=== PATIENT | male | born 1970 | race Asian ===

== ENCOUNTER 2020-09-21 11:08 | Emergency (ER) | payer SELFPAY ==
[~2020-09-21] VITALS: Ht 177.8 cm; Wt 100.0 kg
[~2020-09-21 11:08] MED LIST: ETOMIDATE 2MG/ML 10ML VIAL IV ONE; SODIUM CHLORIDE 0.9% 10ML VIAL ONE
[2020-09-21] MEDS ORDERED: FENTANYL CITRATE/PF 1,000 MCG in SODIUM CHLORIDE 0.9% 80 ML IV PRN ×3 (11:45→12:30)
[2020-09-21 11:54] LABS: BASOPHILS % 0.6 % (0.0-2.0); EOSINOPHILS % 0.6 % (0.0-5.0); HEMATOCRIT. 52.7 % (42.0-52.0); HEMOGLOBIN. 16.8 g/dL (14.0-18.0); LYMPHOCYTES % 19.9 % (20.0-50.0); MEAN CORPUSCULAR HEMOGLOBIN 27.3 pg (28.0-32.0); MEAN CORPUSCULAR VOLUME 85.6 fL (80.0-94.0); MONOCYTES % 3.9 % (2.0-8.0); RED BLOOD CELL COUNT 6.16 mill/uL (4.7-6.1); RED CELL DISTRIBUTION WIDTH 13.4 % (11.6-14.6)
[2020-09-21 11:56] LABS: CLARITY URINE CLEAR (CLEAR); COLOR URINE DARK YELLOW (YELLOW); KETONES URINE 3+ (NEGATIVE); LEUKOCYTE ESTERASE URINE NEGATIVE (NEGATIVE); NITRITE URINE NEGATIVE (NEGATIVE); OCCULT BLOOD URINE 1+ (NEGATIVE); PH URINE 5.5 (4.5-8.0); PROTEIN URINE 3+ (NEGATIVE); SPECIFIC GRAVITY URINE 1.037 (1.005-1.030)
[2020-09-21] MEDS: DEXAMETHASONE 4MG/ML 1ML VIAL IV ONE (12:01)
[2020-09-21] MEDS: ACETAMINOPHEN 650MG SUPP PR STA (12:01)
[2020-09-21] MEDS: SODIUM CHLORIDE 0.9% 1000ML BAG (SEPSIS BOLUS) IV ONE (12:02)
[2020-09-21] MEDS: PROPOFOL 10MG/ML 100ML 100 ML IV ONE (12:02)
[2020-09-21] MEDS: VECURONIUM BROMIDE 10 MG/VIAL IV ONE (12:02)
[2020-09-21 12:03] LABS: CHLORIDE 95 mEq/L (98-107)
[2020-09-21] MEDS: CEFTRIAXONE 1 G PREMIX 50 ML IV ONE (12:03)
[2020-09-21 12:11] LABS: FIBRINOGEN 470 mg/dL (200-400); INR 1.3
[2020-09-21 12:12] LABS: CREATINE KINASE 125 IU/L (39-308)
[2020-09-21] MEDS ORDERED: PROPOFOL 10MG/ML 100ML 100 ML IV PRN (12:15)
[2020-09-21 12:37] LABS: D-DIMER > 35.20 mg/L FEU (<0.50)
[2020-09-21] MEDS: AZITHROMYCIN 500 MG in DEXT 5% WATER 250 ML IV ONE (12:38)
[2020-09-21 12:45] LABS: BG CARBOXYHEMOGLOBIN 0.6 % (0.5-1.5); BG FRACTION INSPIRED OXYGEN 100; BG HCO3 ACT 17.4 mmol/L (22.0-26.0); BG METHEMOGLOBIN 0.5 % (0.0-1.5); BG OXYGEN SATURATION 85.8 % (92.0-98.5); BG OXYHEMOGLOBIN 84.9 % (94.0-97.0); BG PCO2 56.9 mmHg (35.0-45.0); BG PH 7.103 (7.350-7.450); BG SAMPLE SITE RIGHT RADIAL; BG VENT MODE VENT - AC/VC
[2020-09-21] MEDS: SODIUM CHLORIDE 0.9% 1,000 ML IV ONE (12:45)
[2020-09-21 12:49] VITALS: BP 136/93
[2020-09-21] MEDS ORDERED: EPINEPHRINE 5 MG in SODIUM CHLORIDE 0.9% 245 ML IV PRN (13:45)
[2020-09-21] MEDS ORDERED: LIDOCAINE HCL 2% 5ML SYRINGE IV ONE (13:45)
[2020-09-21] MEDS ORDERED: ALTEPLASE 100MG/VIAL IV ONE (13:45)
[2020-09-21] MEDS ORDERED: CALCIUM CHLORIDE 1GM/10ML SYR IV ONE (13:45)
[2020-09-21] MEDS ORDERED: EPINEPHRINE 5 MG in SODIUM CHLORIDE 0.9% 250 ML IV PRN (13:45)
[2020-09-21] MEDS ORDERED: EPINEPHRINE 0.1MG/ML (1:10,000) 10ML SYR ONE (13:45)
[2020-09-21] MEDS ORDERED: AMIODARONE HCL 50MG/ML 3ML VIAL IV ONE (13:45)
[2020-09-21] MEDS ORDERED: SODIUM BICARBONATE 8.4% 1 MEQ/ML 50ML SYR IV ONE ×2 (13:45→14:00)
[2020-09-21] MEDS ORDERED: MAGNESIUM SULFATE 4G IN WATER 100ML PREMIX IV ONE (13:45)
[2020-09-21 14:42] LABS: PLATELET ESTIMATE NORMAL
== END 2020-09-21 14:12 | disposition expired ==
LOC: ER 11:08 → CANBEDREQ 15:21
DX: A41.89 Other specified sepsis (principal); U07.1 COVID-19; R65.21 Severe sepsis with septic shock; J96.01 Acute respiratory failure with hypoxia; J12.89 Other viral pneumonia; I47.2 Ventricular tachycardia; D89.835 Cytokine release syndrome, grade 5; R74.01 Elevation of levels of liver transaminase levels; E11.9 Type 2 diabetes mellitus without complications; J40 Bronchitis, not specified as acute or chronic
CPT/HCPCS: 31500; 36415; 36600; 71045; 80053; 81003; 82375; 82550; 82728; 82805; 83605; 83615; 83880; 84145; 84484; 85025; 85379; 85384; 85610; 86140; 87040; 87077; 87086; 92950; 93005; 94002; 99291; 99292; J0282; J0456; J0696; J1100; J2704; J3475; J3490; J7030; J7060; Z7610; J2997